=== PATIENT | male | born 2000 | race American Indian/Alaskan Native ===

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

== ENCOUNTER 2019-01-29 10:47 | Emergency (ER) | payer OTHER ==
[2019-01-29 10:56] VITALS: BP 126/78
[2019-01-29] MEDS ORDERED: NACL 0.9% 1000 ML 1,000 ML IV ONE ×2 (12:11→14:55)
[2019-01-29] MEDS ORDERED: ZOFRAN IV STA (12:11)
[2019-01-29] MEDS ORDERED: LEVSIN SL SL ONE (12:11)
[2019-01-29 12:38] LABS: Bilirubin,Urine NEG (Negative); Blood,Urine NEG (Negative); Color,Urine Yellow (Yellow); Mucus,Urine 3+ /HPF; RBC,Urine < 1.0 /HPF (0.0-6.0)
[2019-01-29 12:39] LABS: Basophils % (Auto) 0.2 % (0.0-1.8); Eosinophils % (Auto) 0.1 % (0.0-4.3); Hematocrit 43.4 % (35.5-45.6); Hemoglobin 14.8 gm/dl (11.8-15.2); Lymphocytes # (Auto) 1.1 K/mm3 (1.2-5.4); Lymphocytes % (Auto) 12.7 % (13.4-35.0); Mean Corpuscular HGB Conc 34 % (32-34); Mean Corpuscular Volume 84 fl (84-94); Monocytes # (Auto) 0.9 K/mm3 (0.0-0.8); Monocytes % (Auto) 10.8 % (0.0-7.3); Platelet Count 315 K/mm3 (140-440); Red Blood Count 5.14 M/mm3 (3.65-5.03); Red Cell Distribution Width 12.8 % (13.2-15.2)
[2019-01-29 12:55] LABS: Alanine Aminotransferase 11 units/L (7-56); Albumin 4.6 g/dL (3.9-5); BUN/Creatinine Ratio 13; Blood Urea Nitrogen 10 mg/dL (9-20); Calcium 9.8 mg/dL (8.4-10.2); Hemolysis Index 2
--- NOTE | 2019-01-29 14:50 | Emergency Department Report ---
ED N/V/D HPI - General Chief complaint: Abdominal Pain Stated complaint: [id number] Time Seen by Provider: 01/29/19 12:10 Source: patient, family, EMS Mode of arrival: Wheelchair Limitations: No Limitations - History of Present Illness MD complaint: nausea, vomiting -: Sudden, days(s) (3) Description of Vomiting: other (varies) Associated Abdominal Pain: Yes (occasional aches) Location: diffuse Radiation: none Severity: mild Pain Scale: 0 Consistency: constant Improves with: none Worsens with: none Associated Symptoms: denies: myalgias, chest pain, diaphoresis, malaise, nausea/vomiting, rash, shortness of breath, syncope, weakness - Related Data Previous Rx's Medication Instructions Recorded Last Taken Type Sulfamethoxazole/Trimethoprim 1 each PO BID #14 tablet 06/29/15 Unknown Rx [Bactrim DS TAB] Ibuprofen [Motrin 800 MG tab] 800 mg PO Q8HR PRN #15 tablet 12/09/18 Unknown Rx Famotidine [Pepcid] 40 mg PO DAILY #14 tablet 01/29/19 Unknown Rx Hyoscyamine Subl [Levsin Sl] 0.125 mg SL Q4HR PRN #16 tablet 01/29/19 Unknown Rx Ondansetron [Zofran ODT TAB] 8 mg PO Q12HR #14 tab.rapdis 01/29/19 Unknown Rx Allergies Allergy/AdvReac Type Severity Reaction Status Date / Time No Known Allergies Allergy Verified 01/29/19 10:55 ED Review of Systems ROS: Stated complaint: [id number] Other details as noted in HPI Constitutional: denies: chills, fever Eyes: denies: eye pain, eye discharge, vision change ENT: denies: ear pain, throat pain Respiratory: denies: cough, shortness of breath, wheezing Cardiovascular: denies: chest pain, palpitations Endocrine: no symptoms reported Gastrointestinal: denies: abdominal pain, nausea, diarrhea Genitourinary: denies: urgency, dysuria Musculoskeletal: denies: back pain, joint swelling, arthralgia Skin: denies: rash, lesions Neurological: denies: headache, weakness, paresthesias Psychiatric: denies: anxiety, depression Hematological/Lymphatic: denies: easy bleeding, easy bruising ED Past Medical Hx - Past Medical History Previous Medical History?: Yes Hx Asthma: Yes - Surgical History Past Surgical History?: Yes Additional Surgical History: HERNIA REPAIR/RIGHT WRIST - Social History Smoking Status: Never Smoker Substance Use Type: None - Medications Home Medications: Home Medications Medication Instructions Recorded Confirmed Last Taken Type Sulfamethoxazole/Trimethoprim 1 each PO BID #14 tablet 06/29/15 Unknown Rx [Bactrim DS TAB] Ibuprofen [Motrin 800 MG tab] 800 mg PO Q8HR PRN #15 tablet 12/09/18 Unknown Rx Famotidine [Pepcid] 40 mg PO DAILY #14 tablet 01/29/19 Unknown Rx Hyoscyamine Subl [Levsin Sl] 0.125 mg SL Q4HR PRN #16 tablet 01/29/19 Unknown Rx Ondansetron [Zofran ODT TAB] 8 mg PO Q12HR #14 tab.rapdis 01/29/19 Unknown Rx ED Physical Exam - General Limitations: No Limitations General appearance: alert, in no apparent distress - Head Head exam: Present: atraumatic, normocephalic - Eye Eye exam: Present: normal appearance, PERRL, EOMI - ENT ENT exam: Present: normal exam, normal orophraynx, mucous membranes moist - Neck Neck exam: Present: normal inspection - Respiratory Respiratory exam: Present: normal lung sounds bilaterally. Absent: respiratory distress - Cardiovascular Cardiovascular Exam: Present: regular rate, normal rhythm. Absent: systolic murmur, diastolic murmur, rubs, gallop - GI/Abdominal GI/Abdominal exam: Present: soft, tenderness (to the epigastric region), normal bowel sounds. Absent: guarding, rebound, organomegaly, mass, bruit, pulsatile mass - Rectal Rectal exam: Present: deferred - Extremities Exam Extremities exam: Present: normal inspection, full ROM, normal capillary refill - Back Exam Back exam: Present: normal inspection. Absent: CVA tenderness (R), CVA tenderness (L) - Neurological Exam Neurological exam: Present: alert, oriented X3, CN II-XII intact, normal gait - Psychiatric Psychiatric exam: Present: normal affect, normal mood - Skin Skin exam: Present: warm, dry, intact, normal color. Absent: rash ED Course Vital Signs 01/29/19 01/29/19 10:55 14:51 Temperature 97.9 F Pulse Rate 93 H 92 H Respiratory 20 Rate Blood Pressure 126/78 O2 Sat by Pulse 100 98 Oximetry - Reevaluation(s) Reevaluation #1: 01/29/19 16:26 Pain syndrome, resolved feels much better, still feels like he is dehydrated, so plan will to give him another liter of fluids. He is reports having occasional cramp so we'll give him another round of Levsin. Reevaluation #2: 01/29/19 16:27 To the floor were given. Patient is up and ambulatory, appears to be more energetic. Tolerated oral no complaints of significant abdominal discomfort. ED Medical Decision Making - Lab Data Result diagrams: 01/29/19 12:20 01/29/19 12:20 - Medical Decision Making 18-year-old male a few episodes of diarrhea. For the last 3 days. Most likely this is secondary to a viral gastroenteritis. He denies any foreign travel or any known contacts. Responded well to the medications provided. We'll discharge him home on something similar. Advised him management for the next 2 or 3 days and advised to follow up with his primary care provider for a listed provider in the next 2-3 days. Critical care attestation.: If time is entered above; I have spent that time in minutes in the direct care of this critically ill patient, excluding procedure time. ED Disposition Clinical Impression: Gastroenteritis Disposition: DC-01 TO HOME OR SELFCARE Is pt being admited?: No Does the pt Need Aspirin: No Condition: Stable Instructions: Gastritis (ED), Gastroesophageal Reflux in Children (ED), Diet fo r Ulcers and Gastritis (ED) Prescriptions: Hyoscyamine Subl [Levsin Sl] 0.125 mg SL Q4HR PRN #16 tablet PRN Reason: Spasms Famotidine [Pepcid] 40 mg PO DAILY #14 tablet Ondansetron [Zofran ODT TAB] 8 mg PO Q12HR #14 tab.rapdis Referrals: FADY MARISCAL MD [Primary Care Provider] - 3-5 Days
[2019-01-29] MEDS ORDERED: REGLAN IV STA (14:55)
[2019-01-29] MEDS ORDERED: BENADRYL IV STA (14:55)
[2019-01-29] MEDS ORDERED: PEPCID PO STA (14:56)
== END 2019-01-29 17:33 | disposition home or self-care (01) ==
LOC: ED 10:47
DX: K52.9 Noninfective gastroenteritis and colitis, unspecified (principal); J45.909 Unspecified asthma, uncomplicated; Z98.890 Other specified postprocedural states
CPT/HCPCS: 36415; 80053; 81001; 83690; 85025; 96361; 96374; 96375; 99284; J1200; J2405; J2765; J7030

== ENCOUNTER 2019-05-08 17:50 | Emergency (ER) | payer SELFPAY ==
--- NOTE | 2019-05-08 17:59 | Event Note ---
ED Screening Note Date of service: 05/08/19 Time: 17:57 ED Screening Note: 19 y/o male comes in for nausea and vomiting for 5 days. Having diffuse abd pain. This initial assessment/diagnostic orders/clinical plan/treatment(s) is/are subject to change based on patients health status, clinical progression and re- assessment by fellow clinical providers in the ED. Further treatment and workup at subsequent clinical providers discretion. Patient/guardian urged not to elope from the ED as their condition may be serious if not clinically assessed and managed. Initial orders include:
--- NOTE | 2019-05-08 18:30 | XRay Report ---
ABDOMEN 1 VIEW(S) INDICATION / CLINICAL INFORMATION: epigastric pain and constipation. COMPARISON: None available. FINDINGS: TUBES / LINES: None. BOWEL GAS PATTERN: No significant abnormality. FREE AIR / EXTRALUMINAL GAS: None seen. ADDITIONAL FINDINGS: No significant additional findings. IMPRESSION: 1. No significant abnormality. Signer Name: Antonio Carlin MD Signed: 05/08/2019 6:26 PM Workstation Name: [id number]
[2019-05-08 18:33] LABS: Basophils # (Auto) 0.2 K/mm3 (0.0-0.1); Basophils % (Auto) 1.8 % (0.0-1.8); Eosinophils % (Auto) 0.2 % (0.0-4.3); Hematocrit 45.5 % (35.5-45.6); Hemoglobin 15.7 gm/dl (11.8-15.2); Lymphocytes # (Auto) 1.3 K/mm3 (1.2-5.4); Lymphocytes % (Auto) 13.8 % (13.4-35.0); Mean Corpuscular HGB Conc 34 % (32-34); Mean Corpuscular Volume 85 fl (84-94); Monocytes # (Auto) 0.8 K/mm3 (0.0-0.8); Monocytes % (Auto) 8.7 % (0.0-7.3); Platelet Count 344 K/mm3 (140-440); Red Blood Count 5.37 M/mm3 (3.65-5.03)
[2019-05-08 18:47] LABS: Bacteria,Urine 1+ /HPF (Negative); Bilirubin,Urine NEG (Negative); Blood,Urine NEG (Negative); Color,Urine Yellow (Yellow); Mucus,Urine 3+ /HPF
[2019-05-08 19:12] LABS: Alanine Aminotransferase 18 units/L (7-56); Albumin 4.9 g/dL (3.9-5); BUN/Creatinine Ratio 18; Blood Urea Nitrogen 16 mg/dL (9-20); Calcium 10.1 mg/dL (8.4-10.2); Hemolysis Index 7
[2019-05-08] MEDS ORDERED: NACL 0.9% 1000 ML 1,000 ML IV ONE (19:27)
[2019-05-08] MEDS ORDERED: PEPCID IV ONE (19:27)
[2019-05-08] MEDS ORDERED: TORADOL IV ONE (19:27)
[2019-05-08] MEDS ORDERED: ZOFRAN IV ONE (19:27)
--- NOTE | 2019-05-08 22:42 | Cat Scan Report ---
CT ABDOMEN AND PELVIS WITH IV CONTRAST INDICATION: Acute onset epigastric pain with nausea and vomiting. COMPARISON: None available. TECHNIQUE: Axial CT images were obtained through the abdomen and pelvis after 100 mL IV contrast. All CT scans a t this location are performed using CT dose reduction for ALARA by means of automated exposure contro l. FINDINGS -- ABDOMEN: Lung Bases: No acute abnormality. Liver: Normal. Gallbladder: Normal. Bile Ducts: Normal. Pancreas: Normal. Spleen: Normal. Adrenals: Normal. Right Kidney and Proximal Ureter: Normal. Left Kidney and Proximal Ureter: Normal. Stomach and Bowel: Normal. Lymph Nodes: No significant adenopathy. Aorta: No significant abnormality. IVC: Normal. Additional Findings: None. FINDINGS -- PELVIS: Urinary Bladder and Distal Ureters: Normal. Reproductive Organs: No acute abnormality. Appendix: Normal. Bowel: No acute abnormality. Free Fluid: None. Lymph Nodes: No significant adenopathy. Additional Findings: None. Skeletal System: No acute abnormality. IMPRESSION: 1. No acute process in the abdomen or pelvis. Signer Name: Antonio Carlin MD Signed: 05/08/2019 10:37 PM Workstation Name: [id number]
--- NOTE | 2019-05-08 23:03 | Emergency Department Report ---
ED N/V/D HPI - General Chief complaint: Nausea/Vomiting/Diarrhea Stated complaint: NAUSEA/VOMITING Time Seen by Provider: 05/08/19 19:15 Source: patient Mode of arrival: Ambulatory Limitations: No Limitations - History of Present Illness Initial comments: Patient is a 19-year-old -[place] male with no past medical history who presents to the ED with complaint of acute onset of persistent intermittent nausea and vomiting with diffuse abdominal pain for the last 6 days. Patient states that his symptoms are similar to those that his girlfriend salazar but who has since recovered fully. Patient states that he is notably anything down for the last 3 days. Patient denies fever, chills, diarrhea, dysuria, testicular pain, hematuria, change in vision, neck pain, back pain, syncope or dizziness, chest pain or shortness of breath. MD complaint: nausea, vomiting, abdominal pain -: Sudden, days(s) (6) Description of Vomiting: food contents, watery, bilious Description of Diarrhea: other (None) Associated Abdominal Pain: Yes (diffuse) Location: diffuse Radiation: none Severity: moderate Pain Scale: 6 Quality: cramping, aching, sharp Consistency: intermittent Improves with: none Worsens with: none Context: possible food poisoning, sick contacts Associated Symptoms: denies other symptoms, myalgias, headaches, loss of appetite, malaise, nausea/vomiting. denies: chest pain, cough, diaphoresis, fever/chills, rash, dysuria, shortness of breath, syncope, weakness - Related Data Previous Rx's Medication Instructions Recorded Last Taken Type Sulfamethoxazole/Trimethoprim 1 each PO BID #14 tablet 06/29/15 Unknown Rx [Bactrim DS TAB] Ibuprofen [Motrin 800 MG tab] 800 mg PO Q8HR PRN #15 tablet 12/09/18 Unknown Rx Famotidine [Pepcid] 40 mg PO DAILY #14 tablet 01/29/19 Unknown Rx Hyoscyamine Subl [Levsin Sl] 0.125 mg SL Q4HR PRN #16 tablet 01/29/19 Unknown Rx Ondansetron [Zofran ODT TAB] 8 mg PO Q12HR #14 tab.rapdis 01/29/19 Unknown Rx Dicyclomine [Bentyl] 20 mg PO Q6H PRN #24 tablet 05/08/19 Unknown Rx Ondansetron [Zofran ODT TAB] 8 mg PO Q8HR PRN #21 tab.rapdis 05/08/19 Unknown Rx Ranitidine HCl [Zantac] 150 mg PO Q12H #30 tablet 05/08/19 Unknown Rx Allergies Allergy/AdvReac Type Severity Reaction Status Date / Time No Known Allergies Allergy Verified 01/29/19 10:55 ED Review of Systems ROS: Stated complaint: NAUSEA/VOMITING Other details as noted in HPI Constitutional: denies: chills, fever Eyes: denies: eye pain, eye discharge, vision change ENT: denies: ear pain, throat pain Respiratory: denies: cough, shortness of breath, wheezing Cardiovascular: denies: chest pain, palpitations Endocrine: no symptoms reported Gastrointestinal: abdominal pain, nausea, vomiting. denies: diarrhea Genitourinary: denies: urgency, dysuria Musculoskeletal: denies: back pain, joint swelling, arthralgia Skin: denies: rash, lesions Neurological: denies: headache, weakness, paresthesias Psychiatric: denies: anxiety, depression Hematological/Lymphatic: denies: easy bleeding, easy bruising ED Past Medical Hx - Past Medical History Hx Asthma: Yes - Surgical History Additional Surgical History: HERNIA REPAIR/RIGHT WRIST - Social History Smoking Status: Never Smoker Substance Use Type: None - Medications Home Medications: Home Medications Medication Instructions Recorded Confirmed Last Taken Type Sulfamethoxazole/Trimethoprim 1 each PO BID #14 tablet 06/29/15 Unknown Rx [Bactrim DS TAB] Ibuprofen [Motrin 800 MG tab] 800 mg PO Q8HR PRN #15 tablet 12/09/18 Unknown Rx Famotidine [Pepcid] 40 mg PO DAILY #14 tablet 01/29/19 Unknown Rx Hyoscyamine Subl [Levsin Sl] 0.125 mg SL Q4HR PRN #16 tablet 01/29/19 Unknown Rx Ondansetron [Zofran ODT TAB] 8 mg PO Q12HR #14 tab.rapdis 01/29/19 Unknown Rx Dicyclomine [Bentyl] 20 mg PO Q6H PRN #24 tablet 05/08/19 Unknown Rx Ondansetron [Zofran ODT TAB] 8 mg PO Q8HR PRN #21 tab.rapdis 05/08/19 Unknown Rx Ranitidine HCl [Zantac] 150 mg PO Q12H #30 tablet 05/08/19 Unknown Rx ED Physical Exam - General Limitations: No Limitations General appearance: alert, in no apparent distress - Head Head exam: Present: atraumatic, normocephalic, normal inspection - Eye Eye exam: Present: normal appearance, PERRL, EOMI. Absent: scleral icterus, conjunctival injection, nystagmus, periorbital swelling, periorbital tenderness, other - ENT ENT exam: Present: normal exam, normal orophraynx, mucous membranes moist, TM's normal bilaterally, normal external ear exam - Neck Neck exam: Present: normal inspection, full ROM. Absent: tenderness, meningismus, lymphadenopathy, thyromegaly - Respiratory Respiratory exam: Present: normal lung sounds bilaterally. Absent: respiratory distress, chest wall tenderness, accessory muscle use, decreased breath sounds - Cardiovascular Cardiovascular Exam: Present: regular rate, normal rhythm, normal heart sounds. Absent: systolic murmur, diastolic murmur, rubs, gallop - GI/Abdominal GI/Abdominal exam: Present: soft, normal bowel sounds. Absent: tenderness, guarding, rebound, hyperactive bowel sounds - Rectal Rectal exam: Present: deferred - Extremities Exam Extremities exam: Present: normal inspection, full ROM, normal capillary refill - Back Exam Back exam: Present: normal inspection, full ROM. Absent: tenderness, CVA tenderness (R), CVA tenderness (L), muscle spasm, paraspinal tenderness - Neurological Exam Neurological exam: Present: alert, oriented X3, CN II-XII intact, normal gait, reflexes normal - Psychiatric Psychiatric exam: Present: normal affect, normal mood - Skin Skin exam: Present: warm, dry, intact, normal color. Absent: rash ED Course Vital Signs 05/08/19 05/08/19 17:57 20:24 Temperature 99 F Pulse Rate 89 Respiratory 18 16 Rate Blood Pressure 129/73 O2 Sat by Pulse 100 Oximetry - Reevaluation(s) Reevaluation #1: 05/08/19 23:04 Patient is alert and oriented 3 and is not in distress, and is hemodynamically stable. Lab test results were reviewed and are generally unremarkable except for mild hyponatremia. Patient was treated in the ED for nausea and vomiting and pain, and also received normal saline 1 L IV bolus. Abdomen pelvis CT scan with contrast shows no acute pathology in the GI tract or in the pelvis region. On reevaluation, patient nausea and vomiting have resolved, and pain is well controlled. Patient discharged home on antiemetics and pain medication as well as antacids. Patient's symptoms are likely due to viral gastroenteritis acquired about 5 days ago from contaminated food. Patient was advised to follow-up with his primary care physician in 7-10 days for reevaluation or retu rn to the ED immediately if symptoms get worse. ED Medical Decision Making - Lab Data Result diagrams: 05/08/19 18:00 05/08/19 18:00 - Radiology Data Radiology results: report reviewed, image reviewed Abdomen pelvic CT scan w/contrast: No acute abdomen or pelvis pathology - Medical Decision Making Patient is alert and oriented 3 and is not in distress, and is hemodynamically stable. Lab test results were reviewed and are generally unremarkable except for mild hyponatremia. Patient was treated in the ED for nausea and vomiting and pain, and also received normal saline 1 L IV bolus. Abdomen pelvis CT scan with contrast shows no acute pathology in the GI tract or in the pelvis region. On reevaluation, patient nausea and vomiting have resolved, and pain is well controlled. Patient discharged home on antiemetics and pain medication as well as antacids. Patient's symptoms are likely due to viral gastroenteritis acquired about 5 days ago from contaminated food. Patient was advised to follow-up with his primary care physician in 7-10 days for reevaluation or return to the ED immediately if symptoms get worse. - Differential Diagnosis Viral gastroenteritis, GERD, Dehydration, Appendicitis, pancreatitis Critical care attestation.: If time is entered above; I have spent that time in minutes in the direct care of this critically ill patient, excluding procedure time. ED Disposition Clinical Impression: Nausea and vomiting in adult, Viral gastroenteritis Abdominal pain Qualifiers: Abdominal location: generalized Qualified Code(s): R10.84 - Generalized abdominal pain Disposition: DC-01 TO HOME OR SELFCARE Is pt being admited?: No Does the pt Need Aspirin: No Condition: Stable Instructions: Gastroenteritis (ED), Acute Nausea and Vomiting (ED), Abdominal Pain (ED) Additional Instructions: Maintain a clear liquid diet for 12-24 hours, take medications with food and drink plenty of fluids. Follow-up with your primary care physician in 7-10 days for reevaluation. Return to the ED immediately if symptoms get worse. Prescriptions: Dicyclomine [Bentyl] 20 mg PO Q6H PRN #24 tablet PRN Reason: Pain , Severe (7-10) Ranitidine HCl [Zantac] 150 mg PO Q12H #30 tablet Ondansetron [Zofran ODT TAB] 8 mg PO Q8HR PRN #21 tab.rapdis PRN Reason: Nausea Referrals: SHYANN CAMACHO MD [Primary Care Provider] - 3-5 Days Forms: Work/School Release Form(ED) Time of Disposition: 22:57 Print Language: BELIZEAN
[2019-05-08 23:30] VITALS: BP 122/68
== END 2019-05-08 23:29 | disposition home or self-care (01) ==
LOC: ED 17:50
DX: A08.4 Viral intestinal infection, unspecified (principal)
CPT/HCPCS: 36415; 74018; 74177; 80053; 81001; 83690; 85025; 96361; 96374; 96375; 99284; J1885; J2405; J7030; Q9967